=== PATIENT | male | born 1950 | race Two or more races ===

== ENCOUNTER → 2018-04-21 | Outpatient (CLI) | payer MEDICARE ==
[~2018-04-21] MED LIST: CYMBALTA60 MG; XANAX0.5 MG
--- NOTE | 2018-04-21 17:14 | Diagnostic Imaging Report ---
PROCEDURE: Frontal and lateral views of the chest. COMPARISON: None. INDICATIONS: SHORTNESS OF BREATH FINDINGS: Lines/tubes: None. Lungs: The lungs are well inflated and clear. There is no evidence of pneumonia or pulmonary edema. Pleura: There is no pleural effusion or pneumothorax. Heart and mediastinum: Cardiac silhouette is unremarkable. Pulmonary vasculature is normal. Mildly tortuous aorta. Bones: No acute bony abnormality. Degenerative disc changes in the thoracic spine. IMPRESSION: 1. No acute cardiopulmonary abnormalities. Kieran Ramírez M.D. Dictated by: Kieran Ramírez M.D. on 04/21/2018 at 17:17 Electronically approved by: Kieran Ramírez M.D. on 04/21/2018 at 17:17
== END ==
LOC: RAD 16:14
PROVIDERS: ATTEND Internal Medicine Cardiovascular Disease
DX: R06.02 Shortness of breath (principal); R09.89 Other specified symptoms and signs involving the circulatory and respiratory systems
CPT/HCPCS: 71046

== ENCOUNTER → 2018-10-11 | Day surgery (SDC) | payer MEDICARE ==
[~2018-10-11] MED LIST changes: -CYMBALTA60 MG; +CYMBALTA60 MG PO; +FENTANYL CITRATE/PF 100MCG/2 ML INJ ONE; +HYOSCYAMINE SULFATE 0.5 MG/ML INJ ONE; +LISINOPRIL10 MG PO; +MIDAZOLAM HCL 2 MG/2 ML VIAL ONE; +PROPOFOL IV EMULSION 10 MG/ML 20 ML VIAL ONE; -XANAX0.5 MG; +XANAX0.5 MG PO; +lisinopril
--- OUTSIDE RECORDS SUMMARY | 2018-10-11 13:03 | XMS REPORT ---
Author Author [facility] Organization [facility] Address Unknown Phone Unavailable Care Team Providers Care Supervisor Safety Deposit Name Role Phone Minnie MARTINEZ Unavailable Unavailable Payers Payer Name Policy Type Policy Number Effective Date Expiration Date Problems This patient has no known problems. Allergies, Adverse Reactions, Alerts Allergy Name Allergy Type Status Severity Reaction(s) Onset Date Inactive Date Treating Clinician Comments Penicillins DA Active [place] 2013-02-01 00:00:00 Medications This patient has no known medications. Results Test Description Test Time Test Comments Text Results Atomic Results Result Comments CHEST 2 VIEWS [place] [address] Patient Name: LEISA RUSSO MR #: [id number] : 1950 Age/Sex: 68/M Req #: [id number] Adm Physician: Ordered by: ANGELO MARTINEZ MD Report #: [id number] Location: [facility] Room/Bed: Procedure: [id number] DX/CHEST 2 VIEWS Exam Date: Exam Time: REPORT STATUS: Signed PROCEDURE: Frontal and lateral views of the chest. COMPARISON: None. INDICATIONS: SHORTNESS OF BREATH FINDINGS: Lines/tubes: None. Lungs: The lungs are well inflated and clear. There is no evidence of pneumonia or pulmonary edema. Pleura: There is no pleural effusion or pneumothorax. Heart and mediastinum: Cardiac silhouette is unremarkable. Pulmonary vasculature is normal. Mildly tortuous aorta. Bones: No acute bony abnormality. Degenerative disc changes in the thoracic spine. IMPRESSION: 1. No acute cardiopulmonary abnormalities. Rica Ramírez M.D. Dictated by: Rica Ramírez M.D. on 04/21/2018 at 17:17 Electronically approved by: Rica Ramírez M.D. on 04/21/2018 at 17:17 Dictated By: RICA RAMÍREZ MD 16 Transcribed By: MARNIE on 04/21/181716 COPY TO: ANGELO MARTINEZ MD
--- OUTSIDE RECORDS SUMMARY | 2018-10-11 13:03 | XMS REPORT | Summary of Care ---
Author Author GILDA KINSEY N.P. Organization Unknown Address Unknown Phone Unavailable Care Team Providers Care Cut Off Tender Glass Name Role Phone KAI BURLESON-CSUSAN Unavailable Unavailable GILDA KINSEY N.P. Unavailable Unavailable MAZIN SINHA MD Unavailable Unavailable Unavailable Unavailable Functional Status Name Dates Details Functional status health issues are not documented Status: Name Dates Details Cognitive status health issues are not documented Status: Problems Name Dates Details Hyperlipidemia (272.4, E78.5) Status: Active Abnormal electrocardiogram (794.31, R94.31) Status: Active Erectile dysfunction (607.84, N52.9) Status: Active Essential (primary) hypertension (401.9, I10) Status: Active Medications Name Dates Details Xanax 0.5 MG Oral Tablet Active Cymbalta 60 MG Oral Capsule Delayed Release Particles TAKE 1 CAPSULE DAILY. * Refills: 0 Active Simvastatin 20 MG Oral Tablet TAKE 1 TABLET DAILY AT BEDTIME. * Quantity: 30 Refills: 6 KAI ANP-C, LEONCIO * Start : 13-Oct-2011 Active Simvastatin 20 MG Oral Tablet TAKE 1 TABLET DAILY DIRECTED. * Quantity: 90 Refills: 0 KAI ANP-C, LEONCIO * Start : 13-Oct-2011 Active Lisinopril 20 MG Oral Tablet TAKE 1 TABLET DAILY * Quantity: 30 Refills: 0 TIO N.P., GILDA * Start : 27-Aug-2017 Active Cialis 20 MG Oral Tablet 1 tablet PO every 72 hours as needed * Quantity: 6 Refills: 0 TIO N.P., GILDA * Start : 27-Aug-2017 Active Allergies and Adverse Reactions Name Dates Details Penicillins (Allergy) Status: Active Past Medical History Name Dates Details History of Abnormal electrocardiogram (794.31, R94.31) Status: Resolved History of Depressive disorder (311, F32.9) Status: Resolved History of essential hypertension (V12.59, Z86.79) Status: Resolved History of hyperlipidemia (V12.29, Z86.39) Status: Resolved History of hypertension (V12.59, Z86.79) Status: Resolved Procedures Procedure Dates Details 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 Completed History of Hernia Repair Completed Immunization Name Dates Details Immunizations not documented Family History Name Dates Details Family history of Coronary Artery Disease (V17.49) Comments: Family History Status: Active Social History Name Dates Details - Status: Name Dates Details Former smoker Vital Signs Date Test Result Details No Known Vitals to report Results Date Description Value Details Results not documented Plan of Care Name Dates Details Planned Observations Planned Goals not documented Interventions Provided Medication Changes* Lisinopril 20 MG Oral Tablet - Renew Instructions Name Dates Details Instructions not documented Encounters Appointment; GILDA KINSEY NP Encounter Diagnosis: Problem not documented On: 27-Aug-2017 16:00
[2018-10-11 13:49] LABS: BASOPHILS # (AUTO) 0.1 (0.0-0.1); BASOPHILS % 0.8 % (0.0-1.0); EOSINOPHILS # (AUTO) 0.3 (0.0-0.4); EOSINOPHILS % 2.4 % (0.0-6.0); HEMATOCRIT 55.8 % (38.2-49.6); HEMOGLOBIN 17.5 g/dL (14.0-18.0); LYMPHOCYTES # (AUTO) 4.2 (1.0-3.2); LYMPHOCYTES % 33.9 % (18.0-39.1); MEAN CORPUSCULAR HEMOGLOBIN 23.7 pg (28-32); MEAN CORPUSCULAR HGB CONC 31.4 g/dL (31-35); MEAN CORPUSCULAR VOLUME 75.5 fL (81-99); MONOCYTES # (AUTO) 0.8 (0.2-0.8); MONOCYTES % 6.3 % (4.4-11.3); NEUTROPHILS # (AUTO) 6.9 (2.1-6.9); NEUTROPHILS % 56.3 % (38.7-80.0); PLATELET COUNT 265 x10e3/uL (140-360); RED CELL DISTRIBUTION WIDTH 17.7 % (11.7-14.4)
[2018-10-11 13:54] LABS: RED BLOOD COUNT 7.39 x10e6/uL (4.3-5.7)
[2018-10-11 15:45] VITALS: BP 98/62
--- NOTE | 2018-10-11 16:32 | Operative Report ---
DATE OF PROCEDURE: October 11, 2018 REFERRING PHYSICIAN: Dr. Colt Ricks. PROCEDURE PERFORMED: Colonoscopy and polypectomy. INDICATIONS FOR COLONOSCOPY: Surveillance colonoscopy, personal history of colon polyps. MEDICATION: Patient was done under MAC. Please see anesthesiologist's note. PROCEDURE: With patient in the left lateral decubitus position, flexible fiberoptic Olympus colonoscope was inserted into the rectum with ease and advanced all the way to the cecum. Prep overall was suboptimal with scattered retained stools in the colon. One polyp was hot biopsied and polypectomy site was hemoclipped in the cecum and 1 polyp was snared from the ascending colon. Whatever was visualized of the transverse, descending, and sigmoid grossly appeared to be within normal limits, other for some minimal scattered diverticular disease. The scope was then retroflexed into the distal rectum and small internal hemorrhoids were noted, none of which was actively bleeding. The scope was then straightened out. It was subsequently withdrawn. Patient tolerated the procedure well. IMPRESSION: 1. Suboptimal prep. 2. Cecal polyp, hot biopsied. 3. Ascending colon polyp, snared. 4. Diverticulosis. 5. Internal hemorrhoids, none actively bleeding. PLAN: Follow up histology. Initiate high-fiber low-fat diet. Initiate high-fiber supplement. Patient will need a followup colonoscopy in 2 to 3 years due to the suboptimal prep. Job#: [id number] GH cc:COLT RICKS MD
== END | disposition home or self-care (01) ==
LOC: OR 13:00
PROVIDERS: ATTEND Internal Medicine Gastroenterology
DX: Z12.11 Encounter for screening for malignant neoplasm of colon (principal); D12.0 Benign neoplasm of cecum; D12.2 Benign neoplasm of ascending colon; K57.30 Diverticulosis of large intestine without perforation or abscess without bleeding; K64.8 Other hemorrhoids; I49.9 Cardiac arrhythmia, unspecified; I10 Essential (primary) hypertension; G47.33 Obstructive sleep apnea (adult) (pediatric); I25.2 Old myocardial infarction; F32.9 Major depressive disorder, single episode, unspecified; F41.9 Anxiety disorder, unspecified; Z88.0 Allergy status to penicillin; Z95.5 Presence of coronary angioplasty implant and graft
CPT/HCPCS: 36415; 45384; 45385; 85025; 88305; 93005; J1980; J2250; J2704; 44391